=== PATIENT | female | born 1940 | race Caucasian/White ===

== ENCOUNTER 2017-02-06 23:05 | Inpatient (IN) ==
[2017-02-06] MEDS ORDERED: 0.9 % Sodium Chloride 1,000 ML ONE (23:14)
[2017-02-06] MEDS ORDERED: 0.9 % Sodium Chloride 1,000 ML IVC ONE (23:23)
--- NOTE | 2017-02-06 23:43 | Emergency Department Note ---
Disposition Clinical Impression: Atrial fibrillation with rapid ventricular response, Elevated troponin Disposition: Admitted As Inpatient Condition: Serious Time of Disposition: 01:10 General Adult HPI - General Chief complaint: ED General Medical Stated complaint: CHEST PAIN Time Seen by Provider: 02/06/17 23:19 Source: patient Mode of arrival: EMS Limitations: no limitations Nursing Notes Reviewed: Yes Vital Signs Reviewed: Yes - History of Present Illness HPI Narrative: Patient is a 76-year-old female that presents to the emergency department for rapid heart rate. Patient was brought in via EMS. Patient states that she has been feeling tired and a family member checked her heart rate this evening and it was elevated so they called a squad. Patient denies any cardiac history or history of atrial fibrillation. EMS stated that they had A. fib on the monitor rate was in the 170s. Patient had a left knee surgery on Saturday. And has calf pumps on bilaterally. Patient denies any chest pain, shortness of breath, vomiting. Patient does state that she has had some nausea. Patient also states that about 10 days ago she came in and had a UTI for which she got antibiotics for. Pain Scale: 0 - Related Data Allergies Allergy/AdvReac Type Severity Reaction Status Date / Time No Known Allergies Allergy Verified 04/15/15 13:12 All systems ED: reviewed and negative except as stated. Constitutional: Reports: other (Rate tired) Cardiovascular: Reports: other. Denies: chest pain Respiratory: Denies: dyspnea Past Medical History - Past Medical History Medical history: Reports: GERD, hyperlipidemia, hypertension, osteoporosis, thyroid disease Surgical history: Reports: appendectomy, breast surgery, Psychiatric history: Reports: no psych history - Social History Smoking Status: Never smoker Smokeless Tobacco Status: No Alcohol use: Reports: none Drug use: Reports: none Physical Exam - General Limitations: no limitations General appearance: alert - Head Head exam: atraumatic, normocephalic - Neck Neck exam: Present: normal inspection, full ROM, trachea midline - Respiratory Respiratory exam: Present: normal lung sounds bilaterally. Absent: respiratory distress, wheezes - Cardiovascular Cardiovascular exam: Present: tachycardia, irregular rhythm - Abdominal Exam Abdominal exam: Present: soft, Non-Tender, normal bowel sounds - Expanded Lower Extremity Exam Knee exam: Present: other (Left knee surgical incision) Lower leg exam: Present: other (Bilateral calf pumps) - Neurological Exam Neurological exam: Present: alert, oriented X3 - Psychiatric Psychiatric exam: Present: normal affect, normal mood - Skin Skin exam: Present: warm, dry, intact Course - Consultations Consultation #1: I spoke with Dr. Rodriguez at 0104 and he has accepted the patient to his service. We will admit the patient to the hospital. Time: 01:06 Vital Signs Temperature 98.3 F 02/06/17 23:07 Pulse Rate 134 02/06/17 23:07 Respiratory Rate 22 02/06/17 23:07 Blood Pressure 95/51 02/06/17 23:07 O2 Sat by Pulse Oximetry 93 02/06/17 23:07 Temperature 98.3 F 02/06/17 23:07 Pulse Rate 155 02/07/17 00:58 Respiratory Rate 16 02/07/17 00:58 Blood Pressure 115/74 02/07/17 00:58 O2 Sat by Pulse Oximetry 96 02/07/17 00:58 Oxygen Delivery Oxygen Delivery Nasal Cannula Medical Decision Making - MDM Narrative Medical decision making narrative: Due to the patient having new onset of atrial fibrillation we ordered CBC, BMP, troponin, chest x-ray, EKG. EKG here in the emergency department showed intra- fibrillation. Also given the patient fluid bolus as well as started her on Cardizem. This has seemed to decrease the patient's heart rate and her blood pressure is currently stable. The patient had a slightly elevated troponin of 0.08 which is likely due to the patient's elevated heart rate being in the 170s. Due to this being new onset of atrial fibrillation we will admit the patient to the hospital. I have spoke with Dr. Rodriguez and he has accepted the patient to his service at 0104. - Medical Records Medical records reviewed: Yes I reviewed the patient's medical records. - Lab Data Lab results reviewed: Yes I reviewed the patient's lab results. Result diagrams: 02/06/17 23:48 02/06/17 23:48 Lab Results 02/06/17 02/06/17 02/06/17 Range/Units 23:48 23:48 23:48 WBC 12.8 H (4.3-11.1) K/mcL RBC 3.40 L (3.82-4.97) M/mcL Hgb 10.1 L D (11.5-15.4) g/dL Hct 31.7 L (35.3-44.9) % MCV 93.2 (83.0-100.0) fL MCH 29.7 (28.0-33.3) pg MCHC 31.9 (31.6-35.5) g/dL RDW 12.8 (11.5-14.5) % Plt Count 191 (140-400) K/mcL MPV 10.4 (9.4-12.4) fL Immature Gran % 0.5 (0-4) % Seg Neutrophils % 75.2 % Lymphocytes % 10.2 % Monocytes % 13.2 % Eosinophils % 0.7 % Basophils % 0.2 % Neutrophils # 9.6 H (1.6-8.9) K/mcL Lymphocytes # 1.3 (0.6-4.6) K/mcL Monocytes # 1.7 H (0.0-1.3) K/mcL Eosinophils # 0.1 (0.0-0.6) K/mcL Basophils # 0.0 (0.0-0.2) K/mcL Sodium 139 (136-145) mEq/L Potassium 3.7 (3.5-4.5) mEq/L Chloride 108 (98-109) mEq/L Carbon Dioxide 25 (19-29) mEq/L BUN 17 (7-20) mg/dL Creatinine 0.62 (0.57-1.11) mg/dL Est GFR ( Amer) > 60 (> 60) Est GFR (Non-Af Amer) > 60 (> 60) BUN/Creatinine Ratio 27 H (6-26) Glucose 118 H (70-99) mg/dL Calculated Osmolality 291 (280-300) Calcium 8.8 (8.6-10.8) mg/dL Troponin I 0.08 H* (0-0.03) ng/mL - Radiology Data Radiology results reviewed: Yes I reviewed the patient's radiology results. Chest X-Ray 02/07/17 00:10 IMPRESSION: Low lung volume study showing increased bibasilar density, possibly bronchovascular crowding. Correlation for edema is recommended. D/ / Zaida Hunter Cha, MD / Zaida Hunter Cha, MD Interpreting Provider: Zaida Hunter Cha, MD Critical Care Time Critical Care Time: Yes Total Critical Care Time: 50 Attestation: Critical care performed: Time is exclusive of separately billable procedures. Time includes: direct patient care, patient reassessment, coordination of patient care, interpretation of data (laboratory data, radiology data, and respiratory data), review of patient's medical records, medical consultation and documentation of patient care. Procedures included in critical care time: Procedures excluded from critical care time: Attestation Statement - Attestation Attestation: I, Nelson Melara MD, personally evaluated this patient and discussed their management with the resident physician. I reviewed the resident's note and agree with the documented findings, medical decision making, and plan of care. 76-year-old female presents to the emergency department with a complaint of generalized weakness which started yesterday. Patient had a left total knee arthroplasty 2 days ago on Saturday and was discharged home yesterday on Saturday. She states that while she was in the hospital they noted she was having some seizures. She denies any prior history of heart disease or arrhythmias. No history of atrial fibrillation. She reports that after going home yesterday she began to feel very tired and weak which has persisted. She has had some intermittent episodes of palpitations. She states that in the past she has had intermittent episodes of palpitation but is never been evaluated or treated for this. This evening family checked her blood pressure and noted that her pulse was very irregular and rapid. EMS was called and patient was found to be in atrial fibrillation with RVR. She denies any chest pain or shortness of breath , just generalized weakness and not feeling well. On examination patient is a well-developed well-nourished elderly female in no acute distress. She is alert and oriented 3. There is no cyanosis or diaphoresis. Chest is nontender to palpation. Breath sounds are clear and equal bilaterally. Heart is rapid with irregularly irregular rhythm. Abdomen is soft and nontender with normal bowel sounds. EKG shows atrial fibrillation with RVR. Labs reviewed. Troponin 0.08. Chest x -ray shows low lung volumes with bibasilar densities, possibly bronchovascular crowding. Patient was mildly hypotensive on arrival. She received 2 L of normal saline with improvement in her blood pressure. Due to the borderline hypotension she was not given a bolus of Cardizem but was placed on a Cardizem infusion at 5 mg which was then increased to 7.5 mg. She had improvement in her heart rate from around 160s and 170s down to around 130s. The hospitalist, Dr. Rodriguez, was consulted and accepted admission of the patient.
[2017-02-06 23:53] LABS: Basophils % 0.2 %; Eosinophils # 0.1 K/mcL (0.0-0.6); Eosinophils % 0.7 %; Hematocrit 31.7 % (35.3-44.9); Hemoglobin 10.1 g/dL (11.5-15.4); Immature Granulocytes % 0.5 % (0-4); Lymphocytes # 1.3 K/mcL (0.6-4.6); Lymphocytes % 10.2 %; Mean Corpuscular HGB Conc 31.9 g/dL (31.6-35.5); Mean Corpuscular Hemoglobin 29.7 pg (28.0-33.3); Mean Corpuscular Volume 93.2 fL (83.0-100.0); Mean Platelet Volume 10.4 fL (9.4-12.4); Monocytes # 1.7 K/mcL (0.0-1.3); Monocytes % 13.2 %; Neutrophils # 9.6 K/mcL (1.6-8.9); Platelet Count 191 K/mcL (140-400); Red Cell Distribution Width 12.8 % (11.5-14.5); Segmented Neutrophils % 75.2 %
[2017-02-07 00:06] LABS: BUN/Creatinine Ratio 27 (6-26); Blood Urea Nitrogen 17 mg/dL (7-20); Calcium 8.8 mg/dL (8.6-10.8); Carbon Dioxide 25 mEq/L (19-29); Chloride 108 mEq/L (98-109); Glucose 118 mg/dL (70-99); Osmolality,Calculated 291 (280-300); Potassium 3.7 mEq/L (3.5-4.5); Sodium 139 mEq/L (136-145); eGFR For African Americans > 60 (> 60); eGFR For Non-African Americans > 60 (> 60)
[2017-02-07] MEDS ORDERED: 0.9 % Sodium Chloride 1,000 ML IVC SCH ×2 (01:00→01:33)
[2017-02-07 01:28] LABS: Bilirubin,Urine Small (Negative); Blood,Urine Negative (Negative); Clarity,Urine Clear (Clear); Color,Urine Yellow (Yellow); Glucose,Urine (UA) Normal (Normal); Ketones,Urine 40 mg/dL (Negative); Leukocyte Esterase,Urine Negative (Negative); Nitrite,Urine Negative (Negative); Protein,Urine 30 mg/dL (Neg-Trace); Specific Gravity,Urine 1.027 (1.010-1.025); Urobilinogen,Urine Normal (Normal)
[2017-02-07 01:31] LABS: Bacteria,Urine None Seen per hpf (None-Few); Hyaline Casts,Urine None Seen per lpf (None-Few); RBC,Urine 0-3 per hpf (0-3); Squamous Epithelial Cell,Urine Many per lpf (None-Few)
[2017-02-07] MEDS ORDERED: 0.9 % Sodium Chloride 1,000 ML ONE (01:36)
[2017-02-07] MEDS ORDERED: 0.9 % Sodium Chloride 500 ML IVC ONE (01:48)
--- NOTE | 2017-02-07 02:14 | Internal Med History&Physical ---
Date of Encounter: 02/07/17 Time of Encounter: 02:14 Assessment and Plan (1) Atrial fibrillation with rapid ventricular response Current visit: Yes Status: Acute - new onset atrial fibrillation with RVR with hypotension, in the setting of acute stress from knee surgery and beta aaron withdrawal as metoprolol was stopped due to hypotension the day after surgery - she converted to sinus rhythm after arrival to the floor while on cardizem gtt 5 mg. - Her symptoms onset has been 1.5-2 days ago, and with her conversion to sinus rhythm, she is at risk of embolic stroke. Her CHADSVasc score is 4 (woman over 75 with hypertension) and HAS-BLED score is 3 (age, HTN, aspirin, celebrex). Despite recent surgery, the risk of stroke outweighs the risk of bleeding, will anti-coagulate until assessed by cardiology. - cont IVF - cont cardizem gtt, titrate down once metoprolol on board for a few hours - start low dose metoprolol 12.5 mg PO bid, and titrate up as tolerated at least to home dose of metoprolol succinate 100 mg PO daily - start heparin gtt - check K, Mg, replace as needed - check TSH - check TTE (2) Elevated troponin Current visit: Yes Status: Acute likey demand ischemia due to above. troponin 0.08 - recheck troponin (3) Systemic hypertension Current visit: Yes Status: Acute currently hypotensive - hold amlodipine/benazepril - restart low dose metoprolol, titrate up as tolerated Qualifiers: Hypertension type: essential hypertension Qualified Code(s): I10 - Essential (primary) hypertension (4) Hypothyroidism Current visit: Yes Status: Acute - check TSH - cont levothyroxine, adjust dose based on TSH as needed Qualifiers: Hypothyroidism type: unspecified Qualified Code(s): E03.9 - Hypothyroidism , unspecified (5) S/P TKR (total knee replacement) Current visit: Yes Status: Acute left knee is swollen and warm without erythema and discharge. WBC is 12k, likely stress induced. No fever. I doubt infection at this time. - ice prn - courtesy notification Dr. Chirinos in AM Qualifiers: Laterality: left Qualified Code(s): Z96.652 - Presence of left artificial knee joint Internal Medicine - H&P: HPI Chief complaint: weakness, fast heart rate Admitted From: Emergency Dept Plans for Post Hospital Care: Home History of present illness: 76W with HTN on metoprolol/amlodipine/benazepril with no prior heart disease or arrhythmias underwent left TKR 3 days ago. Her BP was noted to be low, and metoprolol was discontinued 2 days ago. For the last 1.5 days, she has noticed progressive fatigue with intermittent heart fluttering, dizziness and nausea. Her family member checked pulse and called EMS due to fast heart rate. She was found to be in a-fib with RVR 170's. On questioning, she reports having occasional heart fluttering in the past as well. No chest pain, dyspnea or orthopnea. A 10-point ROS is otherwise negative. Past Med Surg Social Fam HX - Past Medical History Medical history: GERD, hyperlipidemia, hypertension, osteoporosis, thyroid disease (hypothyroidism, history of Grave's disease) Psychiatric history: no psych history - Past Surgical History Surgical History: appendectomy, breast surgery, - Social History Smoking Status: Never smoker Smokeless Tobacco Status: No Alcohol use: none Drug use: none - Family History Father Living Status: Age at : 82 Cause of : Heart Failure Hx Family Cardiac Disorders: Yes (Heart Failure, HTN) Hx Family Respiratory Disorders: No Hx Family Cancer: No Hx Family GI Disorders: No Hx Family Genitourinary Disorders: No Hx Family Endocrine Disorder: No Hx Family Musculoskeletal Disorders: No Hx Family Neuromuscular Disorders: No Hx Family Neurologic Disorders: No Hx Family HEENT Disorders: No Hx Family Autoimmune Disorders: No Hx Family Reproductive Disorders: No Hx Family Psychosocial Disorders: No Hx Family Medical Disorders: No Internal Medicine - H&P: Meds Amlodipine Besylate/Benazepril [Lotrel 10-20 mg Capsule] 1 each PO DAILY [History] Atorvastatin [Lipitor] 40 mg PO HS 02/07/17 [History] Famotidine [Pepcid] 20 mg PO BID 02/07/17 [History] Levothyroxine Sodium [Levoxyl] 112 mcg PO DAILY 02/07/17 [History] Metoprolol [Lopressor] 100 mg PO DAILY 02/07/17 [History] Polyethylene Glycol 3350 [MiraLAX] 17 gm PO DAILY 02/07/17 [History] 3 Allergy/AdvReac Type Severity Reaction Status Date / Time No Known Allergies Allergy Verified 04/15/15 13:12 All Systems PM: A 10-system review of systems was performed and is negative for pertinent findings except as documented above in the HPI. - Constitutional Vitals: Temp Pulse Resp BP Pulse Ox 98.3 F 117 16 95/69 95 02/06/17 23:07 02/07/17 02:00 02/07/17 02:00 02/07/17 02:00 02/07/17 02:00 General appearance: Present: A&O X 3, pleasant, no acute distress - Head Head exam: Present: atraumatic, normocephalic - Eye Eye exam: Present: PERRL, conjuntiva pink, sclera anicteric Pupils: Present: PERRL - Neck Neck exam general surgery: Present: supple, trachea midline. Absent: nuchal rigidity - Respiratory Respiratory exam: Present: CTAB. Absent: accessory muscle use, rales, rhonchi, wheezes - Cardiovascular Cardiovascular exam: Present: RRR (converted to sinus by the time of my evaluation), +S1, +S2. Absent: diastolic murmur, gallop, rubs, systolic murmur - GI/Abdominal GI/Abdominal exam: Present: normal bowel sounds, soft, no peritoneal signs. Absent: distended, guarding, rebound, tenderness - Extremities Exam Extremities exam: Present: joint swelling (left knee is warm swollen but not tender and without erythema. No discharge from incision site. ), warm, radial pulses palpable and symmetrical. Absent: calf tenderness, cyanotic, pedal edema - Neurological Exam Neurological exam: Present: CN II-XII intact, oriented X3, no focal deficits. Absent: facial droop, speech deficit - Psychiatric Psychiatric exam: Present: normal affect, normal mood - Skin Skin exam: Present: dry, intact Internal Med - H&P Results - Labs CBC & Chem 7: 02/06/17 23:48 02/06/17 23:48 - EKG Data -: EKG Interpreted by Myself (Initial EKG shows a-fib with RVR, no ischemic changes)
[2017-02-07] MEDS ORDERED: Prochlorperazine 10 MG/2 ML VIAL IVP PRN (03:58)
[2017-02-07] MEDS ORDERED: *HR* Heparin 5,000 UNIT/ML VIAL IVP PRN ×2 (05:52)
[2017-02-07] MEDS ORDERED: *HR* Heparin 5,000 UNIT/ML VIAL IVP ONE (05:52)
[2017-02-07] MEDS ORDERED: Naloxone 0.4 MG/ML INJ IVP PRN (05:56)
[2017-02-07] MEDS ORDERED: Heparin 25,000 UNIT/500 ML D5W 25,000 UNIT/500 ML MLS IVC SCH (06:00)
[2017-02-07 06:42] LABS: BUN/Creatinine Ratio 30 (6-26); Blood Urea Nitrogen 16 mg/dL (7-20); Calcium 8.4 mg/dL (8.6-10.8); Carbon Dioxide 23 mEq/L (19-29); Chloride 111 mEq/L (98-109); Glucose 113 mg/dL (70-99); Magnesium 1.9 mg/dL (1.6-2.6); Osmolality,Calculated 294 (280-300); Potassium 3.6 mEq/L (3.5-4.5); Sodium 141 mEq/L (136-145); eGFR For African Americans > 60 (> 60); eGFR For Non-African Americans > 60 (> 60)
[2017-02-07 07:05] LABS: Thyroid Stimulating Hormone 0.823 mcIU/mL (0.350-4.840)
[2017-02-07 07:31] VITALS: BP 133/61
[2017-02-07] MEDS ORDERED: Famotidine 20 MG TABLET PO SCH (09:00)
--- NOTE | 2017-02-07 10:05 | Electrocardiograph Report ---
[employer] Test Date: 2017-02-06 Pat Name: [facility] Department: [facility] Room: 2NE35 Gender: F [employer] Teacher: : 1940 Requested By: Javier Rush Order Number: [id number] Reading MD: Selvin Quintero MD Measurements Intervals [place] Rate: 163 P: WI: 0 QRS: -32 QRSD: 87 T: 36 QT: 285 QTc: 375 Interpretive Statements ATRIAL FIBRILLATION WITH RAPID VENTRICULAR RESPONSE WITH ABERRANT CONDUCTION OR VENTRICULAR PREMATURE COMPLEXES MARKED LEFT AXIS DEVIATION LOW QRS VOLTAGE IN PRECORDIAL LEADS POSSIBLE ANTERIOR MYOCARDIAL INFARCTION, PROBABLY OLD Electronically Signed On 02-07-2017 10:03:45 EDT by Selvin Quintero MD
--- NOTE | 2017-02-07 12:29 | Cardiology Consult Note ---
Date of Encounter: 02/07/17 Time of Encounter: 10:30 Assessment and Plan (1) Atrial fibrillation with rapid ventricular response Current Visit: Yes Status: Acute -New atrial fibrillation with RVR in the setting of relatively recent left knee replacement. Due to post-operative hypotension pt was taken off the metoprolol she takes for HTN (in addition to amlodipine and benazepril). Suspect discontinuation of metoprolol may have contributed to new onset a-fib. -Currently anticoagulated with IV heparin. She has a high risk of stroke (4.8% per year) based on her [id number] score (4), therefore she is an anticoagulation candidate and renal dosing of Xarelto should be continued indefinitely. -Echo returned with LVEF 65% (2) Hypothyroidism Current Visit: Yes Status: Acute -Pt has h/o hypothyroidism. Although thyroid derangement can cause a-fib, this is less likely to be the cause in Ms. Jackson's case because TSH obtained in hospital was 0.0823, which is WNL. -Continue current dose of levothyroxine. Qualifiers: Hypothyroidism type: unspecified Qualified Code(s): E03.9 - Hypothyroidism , unspecified (3) Elevated troponin Current Visit: Yes Status: Acute -Mild troponin elevation (0.08 and 0.06) suspected is due to demand ischemia in the setting of new atrial fibrillation with RVR. -Cardiac rehab not warranted. (4) Systemic hypertension Current Visit: Yes Status: Chronic -Pt has h/o HTN for which she takes metoprolol, amlodipine, and benazepril. After her knee surgery, pt had become hypotensive and her metoprolol was discontinued. It's possible that the absence of the beta aaron unmasked pt's atrial fibrillation, which then lead to demand ischemia because of rapid heart rate and caused the resulting elevation in troponins. Qualifiers: Hypertension type: essential hypertension Qualified Code(s): I10 - Essential (primary) hypertension Discussion w patient/family: The assessment and plan as outlined above was discussed with the patient and/or family members who expressed understanding and agreement. All questions were answered. Thank you for involving us in the care of your patient. Please call with any questions. History of Present Illness Consult date: 02/07/17 Consult reason: new a-fib with RVR, elevated trop Chief complaint: tired, weakness History of present illness: Ms. Jackson is a 76 year old female with h/o HTN, HLD, and hypothyroidism who presented to the ED for c/o progressively feeling tired and weak x 1.5 days. She denies cardiac history, h/o a-fib, and arrhythmias. Pt had left total knee replacement surgery 02/04/17 and discharged home the next day. Pt describes feeling progressively tired and weak and having intermittent episodes of palpitations. HR was in 150s and BP while in ED. Pt denies chest pain, shortness of breath, emesis, and orthopnea. Pt admits to nausea. Cardiology team consulted for new onset atrial fibrillation with RVR in the setting of beta-aaron withdrawal and recent surgery for left total knee replacement. Past Med Surg Social Fam HX - Past Medical History Medical history: GERD, hyperlipidemia, hypertension, osteoporosis, thyroid disease (hypothyroidism, history of Grave's disease) Psychiatric history: no psych history - Past Surgical History Surgical History: appendectomy, breast surgery, - Social History Smoking Status: Never smoker Smokeless Tobacco Status: No Alcohol use: none Drug use: none - Family History Father Living Status: Age at : 82 Cause of : Heart Failure Hx Family Cardiac Disorders: Yes (Heart Failure, HTN) Hx Family Respiratory Disorders: No Hx Family Cancer: No Hx Family GI Disorders: No Hx Family Genitourinary Disorders: No Hx Family Endocrine Disorder: No Hx Family Musculoskeletal Disorders: No Hx Family Neuromuscular Disorders: No Hx Family Neurologic Disorders: No Hx Family HEENT Disorders: No Hx Family Autoimmune Disorders: No Hx Family Reproductive Disorders: No Hx Family Psychosocial Disorders: No Hx Family Medical Disorders: No Medications and Allergies Amlodipine Besylate/Benazepril [Lotrel 5-20 mg Capsule] 1 cap PO DAILY 02/07/17 [History] Atorvastatin [Lipitor] 40 mg PO HS 02/07/17 [History] Famotidine [Pepcid] 20 mg PO BID 02/07/17 [History] HYDROcodone/Acet 5/325 mg [[place] 5-325 mg] 1 - 2 tab PO Q6H PRN 02/07/17 [ History] Levothyroxine Sodium [Levoxyl] 112 mcg PO DAILY 02/07/17 [History] Metoprolol XL (24 HR) Succ [Toprol XL] 100 mg PO DAILY 02/07/17 [History] OxyCODONE Immed Rel [Roxicodone 5 MG] 5 - 10 mg PO Q4-6H PRN 02/07/17 [History] Polyethylene Glycol 3350 [MiraLAX] 17 gm PO DAILY PRN 02/07/17 [History] Rivaroxaban [Xarelto] 20 mg PO QPM #90 tablet 02/07/17 [Rx] Tamsulosin [Flomax] 0.4 mg PO DAILY 02/07/17 [History] 3 Allergy/AdvReac Type Severity Reaction Status Date / Time No Known Allergies Allergy Verified 04/15/15 13:12 All Systems Review: A 10-system review of systems was performed and is negative for pertinent findings except as documented above in the HPI. - Constitutional Constitutional: fatigue, snoring, weakness, no chills, no fever(s) - Cardiovascular Cardiovascular: palpitations ("fluttering"), rapid heart rate, no chest pain at rest, no chest pain with exertion, no diaphoresis, no orthopnea, no paroxysmal nocturnal dyspnea, no syncope - Respiratory Respiratory: no cough, no dyspnea - Gastrointestinal Gastrointestinal: nausea, other (no emesis), no constipation, no diarrhea - Neurological Neurological: dizziness, no syncope Physical Examination General: Conversant, No Apparent Distress HEENT: Atraumatic, Normocephaly, Mucus Membranes Moist Cardiac: Reg Rate and Rhythm, Normal S1 and S2, No Murmur Lungs: Normal Breath Sounds, No Wheeze, Rales, Rhonchi Neuro: Alert and responsive, No focal deficits noted Abdomen: Soft, Non-Tender Skin: No rashes noted on visualized skin, Other (ecchymosis surrounding surgical scar from left total knee arthroplasty, no erythema, no purulent drainage) Extremities: Other (radial and dorsalis pedis pulses palpable and equal b/l; wearing calf compression sleeves b/l; s/p left total knee replacement ) Results 02/06/17 23:48 02/07/17 06:11 Lab Results 02/07/17 02/07/17 02/07/17 06:11 06:11 06:11 APTT 27.0 Sodium 141 Potassium 3.6 Chloride 111 H Carbon Dioxide 23 BUN 16 Creatinine 0.53 L Glucose 113 H Calcium 8.4 L Magnesium 1.9 Troponin I 0.06 H* TSH 0.823 - Imaging and Cardiology Chest Xray: report reviewed Echo: report reviewed Consult Discharge Plan - Plan Instructions: Rivaroxaban (By mouth), Atrial Fibrillation (DC), Total Knee Replacement (DC), Chronic Hypertension (DC), Precautions after Total Joint Replacement Surgery (DC), Precautions after Total Joint Replacement Surgery (GEN ), Total Knee Replacement, Hat And Cap Opener (GEN) Additional Instructions: Discussed with Dr. Ceja, will sign off. Consult as needed. Follow up visit scheduled. Referrals: Randal Nunes DO [Primary Care Provider] - (1 week) Prescriptions: Rivaroxaban [Xarelto] 20 mg PO QPM #90 tablet
[2017-02-07 13:13] LABS: Activated Partial Thrombo Time 135.5 Seconds (26.0-36.0)
[2017-02-07 13:17] LABS: Heparin anti-factor XA UFH 0.9 IU/mL (0.30-0.70)
[2017-02-07] MEDS ORDERED: *HR* Rivaroxaban 10 MG TABLET PO SCH (14:00)
--- NOTE | 2017-02-07 14:36 | Discharge Summary ---
Date of Encounter: 02/07/17 Time of Encounter: 14:34 - Discharge Medications Prescriptions: Rivaroxaban [Xarelto] 20 mg PO QPM #90 tablet Home Medications: Amlodipine Besylate/Benazepril [Lotrel 5-20 mg Capsule] 1 cap PO DAILY 02/07/17 [History] Atorvastatin [Lipitor] 40 mg PO HS 02/07/17 [History] Famotidine [Pepcid] 20 mg PO BID 02/07/17 [History] HYDROcodone/Acet 5/325 mg [[place] 5-325 mg] 1 - 2 tab PO Q6H PRN 02/07/17 [ History] Levothyroxine Sodium [Levoxyl] 112 mcg PO DAILY 02/07/17 [History] Metoprolol XL (24 HR) Succ [Toprol Xl] 100 mg PO DAILY 02/07/17 [History] OxyCODONE Immed Rel [Roxicodone 5 MG] 5 - 10 mg PO Q4-6H PRN 02/07/17 [History] Polyethylene Glycol 3350 [MiraLAX] 17 gm PO DAILY PRN 02/07/17 [History] Rivaroxaban [Xarelto] 20 mg PO QPM #90 tablet 02/07/17 [Rx] Tamsulosin [Flomax] 0.4 mg PO DAILY 02/07/17 [History] Allergies/Adverse Reactions: 3 Allergy/AdvReac Type Severity Reaction Status Date / Time No Known Allergies Allergy Verified 04/15/15 13:12 Date of admission: 02/07/17 05:56 Primary care physician: Randal Nunes DO Consults: 02/07/17 06:00 Consult to Cardiology [CONS] Routine Comment: Consulting Provider: Cardiology Amber Reason for Consult: new a-fib Call Completed: No Discharging clinician: Ike Tavarez Anticipated date of discharge: 02/07/17 - Patient Status Disposition: Home, Self-Care Condition: Good Functional capacity at discharge: independent ambulation Overall status at discharge: patient is back to baseline - Discharge Instructions Follow Up With: Randal Nunes DO [Primary Care Provider] - (1 week) Forms: ED Satisfaction Letter, Work/School Release - Diet and Activity Activity: as per physical therapy, increase activity as tolerated, resume usual activities as tolerated Diet: low salt diet Hospital course: Ms. Jackson is a 76 year old female with a history of hypertension and hypothyroidism who recently underwent a left total knee replacement. Patient's beta aaron was held after surgery due to low blood pressure and she presented to the emergency room due to palpitations. She was found to have atrial flutter ablation with rapid ventricular response. She was admitted to the hospital and her beta aaron was resumed. She was placed on heparin drip for anticoagulation as her symptoms were present for more than 2 days. Cardiac consult was requested. Patient had an echocardiogram performed. Echocardiogram does not reveal any wall motion abnormalities. Cardiology recommended that the patient can be placed on xarelto for oral anticoagulation and resumed on her beta aaron and that she is stable to be discharged home today. Patient will be discharged home today. - Time Spent with Patient Total time spent providing and/or coordinating discharge services: Greater than 30 minutes (40 min) - Constitutional Vitals: Temp Pulse Resp BP Pulse Ox 98.1 F 74 17 133/61 95 02/07/17 07:00 02/07/17 07:00 02/07/17 07:00 02/07/17 07:00 02/07/17 07:00 General appearance: Present: A&O X 3, pleasant, no acute distress Exam: Gen.: Lying in bed. No acute distress. Chest: Clear to auscultation bilaterally. No adventitious sounds present. CVS: First and second heart sounds present. No murmurs, rubs or gallops. Regular rate and rhythm. Abdomen: Soft, nontender, obese. Bowel sounds present. No hepatosplenomegaly. Skin: Well-healing incision over the left knee joint. - VTE Documentation of Mechanical Device: Intermittent pneumatic compression device
[2017-02-07] MEDS ORDERED: Metoprolol XL (24 HR) Succ 50 MG TAB.ER.24H PO SCH (16:00)
[2017-02-07] MEDS ORDERED: Metoprolol 100 MG TABLET PO ONE (21:00)
[2017-02-08] MEDS ORDERED: Metoprolol XL (24 HR) Succ 50 MG TAB.ER.24H PO SCH (09:00)
== END 2017-02-07 16:17 | disposition home or self-care (01) | DRG 309 ==
LOC: 2NENU 23:05 → EMEROO 23:05 → 2NENU 02-07 03:09
PROVIDERS: ADMIT Internal Medicine; ATTEND Internal Medicine Sleep Medicine

== ENCOUNTER 2019-10-28 11:20 | Inpatient (IN) ==
[2019-10-28] MEDS ORDERED: Famotidine 20 MG/2 ML VIAL IVP ONE (11:25)
[2019-10-28] MEDS ORDERED: CeFAZolin Syr 2,000MG/20 ML 2,000 MG/20 ML SYRINGE IVPB ONE (11:48)
[2019-10-28] MEDS ORDERED: Ringers Solution, Lactated 1,000 ML IVC SCH (12:00)
[2019-10-28] MEDS ORDERED: *HR* FentaNYL (PF) 100 MCG/2 ML VIAL ONE ×2 (12:34→14:00)
[2019-10-28] MEDS ORDERED: Dexamethasone 4 MG/ML VIAL ONE (12:34)
[2019-10-28] MEDS ORDERED: Lidocaine -MPF 2% 2 ML VIAL ONE (12:34)
[2019-10-28] MEDS ORDERED: Ondansetron 4 MG/2 ML VIAL ONE (12:34)
[2019-10-28] MEDS ORDERED: *HR* Propofol 200 MG/20 ML VIAL IVP ONE (12:34)
[2019-10-28] MEDS ORDERED: EPHEDrine 50 MG/ML VIAL ONE (13:46)
[2019-10-28] MEDS ORDERED: *HR* Promethazine 25 MG/ML VIAL IVP PRN (14:45)
[2019-10-28] MEDS ORDERED: *HR* Labetalol 20 MG/4 ML SYRINGE IVP PRN (14:45)
[2019-10-28] MEDS ORDERED: Ondansetron 4 MG/2 ML VIAL IVP PRN ×2 (14:45→17:56)
[2019-10-28] MEDS: *HR* HYDROmorphone (PF) 1 MG/ML SYRINGE IVP PRN ×6 (14:49→15:28)
[2019-10-28 15:10] LABS: Hematocrit 38.9 % (35.3-44.9); Hemoglobin 12.5 g/dL (11.5-15.4)
[2019-10-28] MEDS ORDERED: *HR* OxyCODONE Immed Rel 5 MG TABLET PO PRN (16:25)
[2019-10-28] MEDS ORDERED: polyethylene glycoL 3350 17 GM POWD.PACK PO PRN (16:25)
[2019-10-28] MEDS ORDERED: ALPRAZolam 0.25 MG TABLET PO PRN (16:25)
[2019-10-28] MEDS ORDERED: *HR* Rivaroxaban 10 MG TABLET PO SCH (17:00)
[2019-10-28] MEDS ORDERED: *HR* Enoxaparin 30 MG/0.3 ML SYRINGE SQ SCH ×2 (18:00)
[2019-10-28] MEDS ORDERED: Metoprolol XL (24 HR) Succ 50 MG TAB.ER.24H PO SCH (18:00)
[2019-10-28] MEDS ORDERED: Famotidine 20 MG TABLET PO SCH (18:00)
[2019-10-28 19:47] VITALS: BP 111/68
[2019-10-28] MEDS ORDERED: lisinopriL 20 MG TABLET PO SCH (21:00)
[2019-10-28] MEDS ORDERED: amLODIPine 5 MG TABLET PO SCH (21:00)
[2019-10-28] MEDS ORDERED: CeFAZolin 2 GM/120 ML BAG IVPB SCH (21:00)
[2019-10-29] MEDS ORDERED: Cholecalciferol (D-3) 1,000 UNIT (25MCG) TABLET PO SCH (09:00)
[2019-10-29] MEDS ORDERED: dexAMETHasone 4 MG TABLET PO SCH (09:00)
[2019-10-29] MEDS ORDERED: Multivit/Ca/Min/Fe/FA 1 TAB TABLET PO SCH (09:00)
== END 2019-10-28 21:37 | disposition home or self-care (01) | DRG 481 ==
LOC: SAMDAY 11:20 → 3NENU 16:18
PROVIDERS: ADMIT Orthopaedic Surgery; ATTEND Orthopaedic Surgery

== ENCOUNTER 2020-02-07 11:57 | Observation (INO) ==
[2020-02-07] MEDS ORDERED: 0.9 % Sodium Chloride 1,000 ML IVC ONE (12:22)
[2020-02-07] MEDS ORDERED: Ondansetron 4 MG/2 ML VIAL IVP ONE (12:22)
[2020-02-07 12:42] LABS: Hematocrit 36.5 % (35.3-44.9); Hemoglobin 11.9 g/dL (11.5-15.4); Mean Corpuscular HGB Conc 32.6 g/dL (31.6-35.5); Mean Corpuscular Hemoglobin 30.3 pg (28.0-33.3); Mean Corpuscular Volume 92.9 fL (83.0-100.0); Mean Platelet Volume 10.1 fL (9.4-12.4); Platelet Count 290 K/mcL (140-400); Red Blood Count 3.93 M/mcL (3.82-4.97); Red Cell Distribution Width 13.1 % (11.5-14.5); White Blood Count 4.5 K/mcL (4.3-11.1)
[2020-02-07 13:01] LABS: BUN/Creatinine Ratio 19 (6-26); Blood Urea Nitrogen 10 mg/dL (8-23); Calcium 9.2 mg/dL (8.6-10.3); Carbon Dioxide 23 mEq/L (23-29); Chloride 101 mEq/L (98-107); Glucose 110 mg/dL (70-105); Osmolality,Calculated 282 (280-300); Sodium 136 mEq/L (136-145); eGFR For African Americans > 60 (> 60); eGFR For Non-African Americans > 60 (> 60)
[2020-02-07] MEDS ORDERED: Potassium Chloride Elixir 20 MEQ/15 ML UDC PO ONE (13:21)
[2020-02-07] MEDS ORDERED: *HR* Promethazine 25 MG/ML VIAL IVP ONE ×2 (13:43→17:34)
[2020-02-07] MEDS ORDERED: 0.9 % Sodium Chloride 500 ML IVC ONE (13:44)
[2020-02-07 15:26] LABS: Bilirubin,Urine Negative (Negative); Blood,Urine Negative (Negative); Clarity,Urine Clear (Clear); Color,Urine Colorless (Yellow); Glucose,Urine (UA) Normal (Normal); Ketones,Urine 40 mg/dL (Negative); Leukocyte Esterase,Urine Large (Negative); Nitrite,Urine Negative (Negative); PH,Urine 6.5 pH Units (5.0-8.0); Protein,Urine Negative (Neg-Trace); Specific Gravity,Urine 1.006 (1.010-1.025); Urobilinogen,Urine Normal (Normal)
[2020-02-07 15:34] LABS: Bacteria,Urine Moderate per hpf (None-Few); RBC,Urine 0-3 per hpf (0-3)
[2020-02-07] MEDS ORDERED: Isovue-370 500 ML BOTTLE IVP ONE (15:39)
[2020-02-07] MEDS ORDERED: Vancomycin 1,250 MG/262.5 ML IV.SOLN IVPB ONE (17:27)
[2020-02-07] MEDS ORDERED: Naloxone 0.4 MG/ML INJ IVP PRN (17:47)
[2020-02-07] MEDS ORDERED: Ondansetron 4 MG/2 ML VIAL IVP PRN (17:47)
[2020-02-07] MEDS ORDERED: polyethylene glycoL 3350 17 GM POWD.PACK PO PRN (17:52)
[2020-02-07] MEDS ORDERED: Acetaminophen 325 MG TABLET PO PRN (17:58)
[2020-02-07] MEDS: Piperacillin/Tazobactam 3.375 GM in 0.9 % Sodium Chloride Mini Bag 100 ML IVPB ONE ×2 (18:04→18:18)
[2020-02-07 19:41] LABS: Adenovirus Not Detected (Not Detect); Bordetella Pertussis Not Detected (Not Detect); Chlamydophila pneumoniae Not Detected (Not Detect); Coronavirus 229E Not Detected (Not Detect); Coronavirus HKU1 Not Detected (Not Detect); Coronavirus NL63 Not Detected (Not Detect); Coronavirus OC43 Not Detected (Not Detect); Human Metapneumovirus Not Detected (Not Detect); Human Rhinovirus/Enterovirus Not Detected (Not Detect); Influenza A Subtype 2009 H1 Not Detected (Not Detect); Influenza B Not Detected (Not Detect); Mycoplasma pneumoniae Not Detected (Not Detect); Parainfluenza Virus 1 Not Detected (Not Detect); Parainfluenza Virus 2 Not Detected (Not Detect); Parainfluenza Virus 3 Not Detected (Not Detect); Parainfluenza Virus 4 Not Detected (Not Detect); Respiratory Syncytial Virus Not Detected (Not Detect)
[2020-02-07] MEDS ORDERED: Prochlorperazine 10 MG/2 ML VIAL IVP PRN (22:43)
[2020-02-07] MEDS: Metoprolol XL (24 HR) Succ 50 MG TAB.ER.24H PO SCH (22:54)
[2020-02-07] MEDS: Famotidine 20 MG TABLET PO SCH (22:54)
[2020-02-07] MEDS: amLODIPine 5 MG TABLET PO SCH (22:54)
[2020-02-07] MEDS: 0.9 % Sodium Chloride 1,000 ML IVC SCH (22:55)
[2020-02-07] MEDS: Potassium Chloride Elixir 20 MEQ/15 ML UDC PO SCH (22:57)
[2020-02-07] MEDS ORDERED: Acetaminophen IV 1,000 MG/100 ML INFUS..BTL IVPB ONE (23:01)
[2020-02-07] MEDS: lisinopriL 20 MG TABLET PO SCH (23:14)
[2020-02-07] MEDS: *HR* Heparin 5,000 UNIT/ML VIAL SQ SCH (23:15)
[2020-02-08 03:11] LABS: Basophils % 0.4 %; Eosinophils # 0.1 K/mcL (0.0-0.6); Eosinophils % 1.5 %; Hematocrit 34.4 % (35.3-44.9); Hemoglobin 10.9 g/dL (11.5-15.4); Immature Granulocytes % 1.1 % (0-4); Lymphocytes # 0.6 K/mcL (0.6-4.6); Lymphocytes % 13.7 %; Mean Corpuscular HGB Conc 31.7 g/dL (31.6-35.5); Mean Corpuscular Hemoglobin 29.9 pg (28.0-33.3); Mean Corpuscular Volume 94.5 fL (83.0-100.0); Mean Platelet Volume 9.9 fL (9.4-12.4); Monocytes # 0.5 K/mcL (0.0-1.3); Monocytes % 10.2 %; Neutrophils # 3.3 K/mcL (1.6-8.9); Platelet Count 265 K/mcL (140-400); Red Blood Count 3.64 M/mcL (3.82-4.97); Red Cell Distribution Width 13.2 % (11.5-14.5); Segmented Neutrophils % 73.1 %; White Blood Count 4.5 K/mcL (4.3-11.1)
[2020-02-08 03:29] LABS: BUN/Creatinine Ratio 12 (6-26); Blood Urea Nitrogen 6 mg/dL (8-23); Calcium 8.7 mg/dL (8.6-10.3); Carbon Dioxide 22 mEq/L (23-29); Chloride 108 mEq/L (98-107); Glucose 111 mg/dL (70-105); Magnesium 1.8 mg/dL (1.6-2.6); Osmolality,Calculated 288 (280-300); Phosphorous 2.6 mg/dL (2.7-4.5); Potassium 2.8 mEq/L (3.5-5.1); Sodium 140 mEq/L (136-145); eGFR For African Americans > 60 (> 60); eGFR For Non-African Americans > 60 (> 60)
[2020-02-08] MEDS ORDERED: Potassium Chloride 40 MEQ, Lidocaine 1% 2 ML in 0.9 % Sodium Chloride 500 ML IVPB ONE ×2 (04:18→14:03)
[2020-02-08] MEDS: Metoprolol XL (24 HR) Succ 50 MG TAB.ER.24H PO SCH ×2 (04:50→17:11)
[2020-02-08] MEDS: lisinopriL 20 MG TABLET PO SCH ×2 (04:52→20:19)
[2020-02-08] MEDS: Famotidine 20 MG TABLET PO SCH ×2 (04:52→17:11)
[2020-02-08] MEDS: *HR* Heparin 5,000 UNIT/ML VIAL SQ SCH ×2 (05:29→07:02)
[2020-02-08] MEDS: 0.9 % Sodium Chloride 1,000 ML IVC SCH (05:31)
[2020-02-08] MEDS: Potassium Chloride Elixir 20 MEQ/15 ML UDC PO SCH (07:09)
[2020-02-08] MEDS: Cholecalciferol (D-3) 1,000 UNIT (25MCG) TABLET PO SCH (08:49)
[2020-02-08] MEDS: cefTRIAXone 1,000 MG in Water for inj. (sterile) 10 ML IVP SCH (08:49)
[2020-02-08] MEDS: Azithromycin 500 MG in 0.9 % Sodium Chloride 250 ML IVPB SCH (10:05)
[2020-02-08] MEDS ORDERED: 0.9 % Sodium Chloride 1,000 ML IVC ONE (14:08)
[2020-02-08] MEDS: Gabapentin 300 MG CAPSULE PO SCH ×2 (14:13→20:18)
[2020-02-08] MEDS ORDERED: *HR* Rivaroxaban 10 MG TABLET PO SCH (17:00)
[2020-02-08] MEDS: Mirtazapine 15 MG TABLET PO SCH ×2 (20:18→20:37)
[2020-02-08] MEDS: amLODIPine 5 MG TABLET PO SCH (20:18)
[2020-02-08 23:10] LABS: Albumin 3.3 g/dL (3.5-5.7); Albumin/Globulin Ratio 1.5 (1.1-2.2); Bilirubin,Direct 0.1 mg/dL (0.0-0.2); Bilirubin,Indirect 0.2 mg/dL (0.0-1.0); Bilirubin,Total 0.3 mg/dL (0.3-1.0); Globulin 2.2 g/dL (2.4-3.5); Total Protein 5.5 g/dL (6.4-8.9)
[2020-02-08] MEDS ORDERED: Acetaminophen 325 MG TABLET PO PRN (23:28)
[2020-02-09 04:12] LABS: Basophils % 0.7 %; Eosinophils # 0.4 K/mcL (0.0-0.6); Hematocrit 29.4 % (35.3-44.9); Hemoglobin 9.7 g/dL (11.5-15.4); Immature Granulocytes % 1.2 % (0-4); Lymphocytes # 0.9 K/mcL (0.6-4.6); Lymphocytes % 20.6 %; Mean Corpuscular Volume 93.9 fL (83.0-100.0); Mean Platelet Volume 9.6 fL (9.4-12.4); Monocytes # 0.5 K/mcL (0.0-1.3); Monocytes % 12.3 %; Neutrophils # 2.4 K/mcL (1.6-8.9); Platelet Count 247 K/mcL (140-400); Red Blood Count 3.13 M/mcL (3.82-4.97); Red Cell Distribution Width 13.6 % (11.5-14.5); Segmented Neutrophils % 56.2 %; White Blood Count 4.3 K/mcL (4.3-11.1)
[2020-02-09 04:33] LABS: Alanine Aminotransferase 6 Units/L (7-52); Albumin/Globulin Ratio 1.4 (1.1-2.2); Alkaline Phosphatase 59 Units/L (34-104); Aspartate Amino Transferase 12 Units/L (13-39); BUN/Creatinine Ratio 5 (6-26); Bilirubin,Total 0.3 mg/dL (0.3-1.0); Blood Urea Nitrogen 2 mg/dL (8-23); Calcium 8.2 mg/dL (8.6-10.3); Carbon Dioxide 22 mEq/L (23-29); Chloride 110 mEq/L (98-107); Globulin 2.1 g/dL (2.4-3.5); Glucose 78 mg/dL (70-105); Osmolality,Calculated 285 (280-300); Sodium 140 mEq/L (136-145); Total Protein 5.1 g/dL (6.4-8.9); eGFR For African Americans > 60 (> 60); eGFR For Non-African Americans > 60 (> 60)
[2020-02-09 04:46] VITALS: BP 112/78
[2020-02-09] MEDS: Cholecalciferol (D-3) 1,000 UNIT (25MCG) TABLET PO SCH (06:50)
[2020-02-09 07:38] LABS: Magnesium 1.6 mg/dL (1.6-2.6); Phosphorous 2.2 mg/dL (2.7-4.5)
[2020-02-09] MEDS: Gabapentin 300 MG CAPSULE PO SCH (08:01)
[2020-02-09] MEDS: cefTRIAXone 1,000 MG in Water for inj. (sterile) 10 ML IVP SCH (08:01)
[2020-02-09] MEDS: Azithromycin 500 MG in 0.9 % Sodium Chloride 250 ML IVPB SCH (08:02)
[2020-02-09] MEDS ORDERED: Potassium Chloride Elixir 20 MEQ/15 ML UDC PO ONE (08:26)
[2020-02-10] MEDS ORDERED: Azithromycin 250 MG TABLET PO SCH (09:00)
== END 2020-02-09 10:45 | disposition home or self-care (01) ==
LOC: 2NENU 11:57 → EMEROOARM 11:57 → SUATTDRO 19:52 → 2NENU 20:36
PROVIDERS: ADMIT Family Medicine; ATTEND Family Medicine